=== PATIENT | female | born 1960 | race Caucasian/White ===

== ENCOUNTER 2016-10-12 17:16 | Emergency (ER) | payer OTHER ==
--- NOTE | 2016-10-22 07:04 | ER ---
ADMIT: 10/12/2016 RM/LOC: ER [facility] MR#: [id number] [address] [address] [place] [address] Emergency Room Report SEX: F AGE: 56 : 1960 DATE: 10/12/2016 ADDENDUM: See T-sheet for complete H and P. A 56-year-old female who presents complaining of some vague discomfort in her chest and her back. States it is actually going on for about 3 days. It is not associated with any activity. She has a personal history of some COPD/asthma and GERD, but no personal coronary artery disease, diabetes, hypertension, or high cholesterol. She also has no history of DVT or PE and has no risk factors. Her dad did have some cardiac issues that began in his 50s. Her physical exam was unremarkable and we started our cardiac routine on the patient. We were going to give her nitroglycerin and she states her pain had pretty much resolved prior to the first dose of nitroglycerin and did not make any change when she did receive it. She did receive aspirin in the Emergency Department also. Her CBC, chemistries, first set of cardiac enzymes, and chest x-ray were all unremarkable. Her EKG showed sinus rhythm, rate of 87. No signs of ST-elevation or acute AL. The patient was chest pain- free during the majority of her stay in the ER and states that she does not want to stay and actually feels comfortable going home. At this point, I did recommend that patient get a cardiac workup as an outpatient with her primary care physician. She states that she will give their office a call tomorrow. She was told she can return to the ER for any concerning symptoms. DIAGNOSIS: Atypical chest pain. Carl Saxena MD/ ruth JOB #: [id number] CC: Carl Saxena MD, Attending Physician Kadie Mae PA-C, Family Physician
== END 2016-10-12 19:15 | disposition home or self-care (01) ==
LOC: ER 17:16
DX: R07.89 Other chest pain (principal); K21.9 Gastro-esophageal reflux disease without esophagitis; J45.909 Unspecified asthma, uncomplicated; F17.210 Nicotine dependence, cigarettes, uncomplicated

== ENCOUNTER → 2016-10-20 | Outpatient (CLI) | payer OTHER | END | disposition home or self-care (01) | LOC: CARD 09:39 | DX: R07.9 Chest pain, unspecified (principal); I49.1 Atrial premature depolarization; I49.3 Ventricular premature depolarization ==

== ENCOUNTER 2016-11-17 11:59 | Day surgery (SDC) | payer OTHER ==
[~2016-11-17] VITALS: Ht 170.2 cm; Wt 90.0 kg
--- NOTE | ~2016-11-17 | CATH ---
Cardiac Diagnostic Report Demographics Patient Name SHAUN Lazo Gender Female Date of 1960 Age 56 year(s) Patient Number [id number] Date of Study 11/17/2016 Visit Number [id number] Room Number Corporate ID Ht 170.18 cm Wt 90.26 kg Accession Number [id number] BSA 2.02 m kg/m Referring Esme Dejesus Primary Physician Physician Goyo aNnce MD Secondary Physician Physician Cresencio Diagnostic Goyo MULLINS Assisting Physician Physician Cresencio Interventional Goyo MULLINS Physician Hydro Excavation Operator Physician Cresencio Findings and Conclusions Diagnostic Findings and Conclusion 1. Normal coronary arteries Diagnostic Recommendations 1. Risk factor modifications Procedure Description The patient was brought to the diagnostic cardiac catheterization-laboratory in the fasting, non-sedated state. Informed consent was obtained in the written and verbal form after the risks and benefits were explained. The patient had no further questions and agreed to proceed. The planned puncture-incision site(s) were shaved and prepped with ChloraPrep and draped in the usual sterile manner. Conscious sedation, supplemental oxygen, and pain control medications were delivered by a registered nurse under physician guidance. Surface ECG rhythm, blood pressure measurement, and pulse oximetry were monitored throughout the procedure. Arterial access. The right radial access site was infiltrated with lidocaine. The vessel was entered with the Seldinger technique. A 6F sheath was advanced into the vessel and used for catheter placement. Selective left coronary angiography. A TIG catheter was advanced into the left coronary vessel ostium under Fluoroscopic guidance. Contrast was injected by hand. Images were obtained in multiple projections. Selective right coronary angiography. A AR MOD catheter was advanced into the right coronary vessel ostium under fluoroscopic guidance. Contrast was injected by hand. Images were obtained in multiple projections. Left heart catheterization. A TIG catheter was advanced across the aortic valve to the left ventricle under fluoroscopic guidance. Resting hemodynamics were obtained. Arterial artery hemostasis was achieved with TR band. The patient was transferred to a regular nursing floor via cart accompanied by a nurse. The patient left the laboratory in stable condition. Diagnostic Cath Status: Elective Procedure Procedure Type Diagnostic procedure:Angiography:, Coronary Angios w/[facility] Indications: Dyslipidemia, Tobacco use-current, Family history of coronary artery disease, Chest pain and Abnormal Stress Test. The procedure was explained in detail to the patient. Risks, complications and alternative treatments were reviewed. Written consent was obtained. Medications Reviewed with Patient prior to Procedure. Complications: No Complication. Angiographic Findings Dominance: Left Cardiac Arteries and Lesion Findings LMCA: Normal (0% Stenosis). LAD: Normal (0% Stenosis). LCx: Normal (0% Stenosis). RCA: Normal (0% Stenosis). Procedure Data Procedure Date Date: 11/17/2016Start: 01:46 PM Entry Locations - Percutaneous access was performed through the Right Radial artery (Primary location). A 6 Fr sheath was inserted. Hemostasis was successfully obtained using a TR band. Procedure Medications Order and Administration + + +-------+--------+ !Time !Medication !Dosage !Route ! + + +-------+--------+ 11/17/2016 !Versed !2 mg !I.V. ! !01:46 PM ! ! ! ! + + +-------+--------11/17/2016 !Fentanyl !25 mcg !I.V. ! !01:47 PM ! ! ! ! + + +-------+--------11/17/2016 !Sodium Chloride !10 ml !I.V. ! !01:47 PM ! ! ! ! + + +-------+--------+ !11/17/2016 !Fentanyl !25 mcg !I.V. ! !01:48 PM ! ! ! ! + + +-------+--------+ !11/17/2016 !Oxygen !2 l/min!NC ! !01:52 PM ! ! ! ! + + +-------+--------+ !11/17/2016 !SF Radial Cocktail: 200mcg Nitro, 2.5 mg ! !I.A. ! !01:56 PM !Verapamil, 5000u Heparin ! ! ! + + +-------+--------+ Devices Used - A6F TIG CATHETERwas used for:Left coronary angiography. - [facility] 6FR MPA-1 CATHETER 100CMwas used for:Right coronary angiography.Unable to cannulate the vessel. - [facility] 6F PRC CATHETER 100CMwas used for:Right coronary angiography.Unable to cannulate the vessel. - [facility] 6F AR MOD CATHETER 100CMwas used for:Right coronary angiography. Contrast Material - Isovue 51085 ml Fluoroscopy Time: Diagnostic: 12:00 minutes. Total: 12:00 minutes. Fluoroscopy Dose: Diagnostic: 590 mGy. Total: 590 mGy. Estimated Blood Loss: 11 ml. Medical History Allergies - No allergy information. Risk Factors The patient risk factors include:treated hypercholesterolemia, last creatinine: 0.9 mg/dl, creatinine clearance: 97.09 ml/min, dyslipidemia and Current/Recent(w/in 1 year) tobacco use. Admission Data Admission Date: 11/17/2016 Admission Time: 11:59 AM Insurance Payors: [employer] health insurance. Clinical Evaluation Leading to Procedure Diagnosed on 11/15/2016 03:30 PM. - The patient's CAD presentation was assessed as: Unstable angina. - The patient's anginal syndrome during the past two weeks was assessed as: Class III according to the [place] Cardiovascular Society Classification System (CCS). Anti-anginal medications were prescribed during the past two weeks. The medications are: Beta Blockers and Ranolazine. Hemodynamics Condition: Rest O2 Consumption: Estimated: 199.20Heart Rate: 79 bpm Pressures (mmHg) +-----+ + !Site !Pressure ! +-----+ + !LV !70/1 ,3 ! +-----+ + !AO !79/50 (62) ! +-----+ + !LV !70/1 ,3 ! +-----+ + !AO !78/53 (65) ! +-----+ + !AO !116/66 (90) ! +-----+ + Valve Gradients and Areas + +---------+---------+---------+ +---------+ + !Valve !Peak !Mean !Area !Index !Flow !Source ! + +---------+---------+---------+ +---------+ + !Aortic !0 !0 ! ! ! ! ! + +---------+---------+---------+ +---------+ + !Aortic !0 !0 ! ! ! ! ! + +---------+---------+---------+ +---------+ + Shunts Oxygen Values O2 Capacity 202.64 O2 Consumption 199.2 Signatures
== END 2016-11-17 19:00 | disposition home or self-care (01) ==
LOC: SSS 11:59
DX: I25.110 Atherosclerotic heart disease of native coronary artery with unstable angina pectoris (principal); F41.9 Anxiety disorder, unspecified; F32.9 Major depressive disorder, single episode, unspecified; K21.9 Gastro-esophageal reflux disease without esophagitis; E78.5 Hyperlipidemia, unspecified; F17.210 Nicotine dependence, cigarettes, uncomplicated; J45.909 Unspecified asthma, uncomplicated; Z79.899 Other long term (current) drug therapy; Z79.82 Long term (current) use of aspirin

== ENCOUNTER → 2016-11-25 | Outpatient (CLI) | payer OTHER | END | disposition home or self-care (01) | LOC: RAD.S 15:59 | DX: M79.601 Pain in right arm (principal); R20.2 Paresthesia of skin; M79.89 Other specified soft tissue disorders; I74.2 Embolism and thrombosis of arteries of the upper extremities ==